=== PATIENT | female | born 1945 | race Caucasian/White ===

== ENCOUNTER 2019-05-03 09:33 | Inpatient (IN) ==
[2019-04-28 12:41] LABS: Basophils # (Auto) 0 K/mcL (0.0-0.3); Basophils % (Auto) 0.8 % (0.0-2.0); Eosinophils # (Auto) 0.1 K/mcL (0.0-0.7); Eosinophils % (Auto) 2.5 % (0.0-7.0); Granulocytes % (Auto) 61.4 % (38.0-78.0); Hematocrit 31.8 % (36.0-48.0); Hemoglobin 10.2 g/dL (12.0-15.0); Lymphocytes # (Auto) 1.6 K/mcL (1.5-4.8); Lymphocytes % (Auto) 27.2 % (15.5-49.0); Mean Cell Volume 86.1 fL (80.0-100.0); Mean Corpuscular HGB Conc 32.1 g/dL (31.0-36.0); Mean Platelet Volume 11.7 fL (7.4-10.4); Monocytes # (Auto) 0.5 K/mcL (0.1-0.9); Monocytes % (Auto) 8.1 % (1.0-12.0); Platelet Count 228 K/mcL (140-440); Red Cell Distribution Width 17.3 % (11.5-14.5); WBC 5.8 K/mcL (4.5-11.0)
[2019-04-28 12:47] LABS: Blood Urea Nitrogen 18 mg/dl (8-23); Calcium 9.1 mg/dl (8.6-10.4); Carbon Dioxide 27 mmol/L (22-30); Chloride 101 mmol/L (96-108); Glomerular Filtration Rate 91; Glucose 94 mg/dL (70-105); Sodium 139 mmol/L (133-145)
[2019-04-28 13:45] LABS: Appearance,Urine CLEAR; Bacteria,Urine 0 /hpf (0); Bilirubin,Urine NEG (NEG); Color,Urine YELLOW; Culture Indicated,Urine NO; Glucose,Urine (UA) NEGATIVE (NEG); Ketones,Urine NEG (NEG); Leukocyte Esterase,Urine 75 /uL (NEG); Mucus,Urine MOD /hpf (0); Nitrate,Urine NEG (NEG); Protein,Urine NEG (NEG); Specific Gravity,Urine 1.013 (1.000-1.035); Urine Blood NEG mg/dL (<0.03); Urine RBC 1 /hpf (0-1); Urine Squamous Epithelial Cell 3 /hpf (0-4); Urine WBC 3 /hpf (0-4); Urobilinogen,Urine NEG (NEG)
[~2019-05-03 09:33] MED LIST: 0.9 % SODIUM CHLORIDE 9 ML, KETOROLAC 30 MG, ROPIVACAINE HCL/PF 49.5 ML, EPINEPHrine 0.... IJ SCH; ACETAMINOPHEN 500 MG TABLET PO SCH; CELECOXIB 200 MG CAPSULE PO SCH; IPRATROPIUM/ALBUTEROL 3 ML AMPUL.NEB NEB PRN; PREGABALIN 75 MG CAPSULE PO SCH; SCOPOLAMINE 1 PATCH PATCH TOPICAL PRN; oxyCODONE 10 MG TAB.ER.12H PO SCH
[2019-05-03] MEDS ORDERED: ceFAZolin 2 GM in DEXTROSE 5% IN WATER 50 ML IV SCH (11:00)
[2019-05-03] MEDS ORDERED: 0.9 % SODIUM CHLORIDE 250 ML IV SCH (11:30)
[2019-05-03] MEDS ORDERED: PROPOFOL 200 MG/20 ML VIAL IV ONE (12:15)
[2019-05-03] MEDS ORDERED: KETAMINE 100 MG/ML ML IV ONE (12:15)
[2019-05-03] MEDS ORDERED: ROPIVACAINE HCL/PF 30 ML VIAL IJ ONE (12:15)
[2019-05-03] MEDS ORDERED: PHENYLEPHRINE 10 MG/ML VIAL IV ONE (12:15)
[2019-05-03] MEDS ORDERED: MIDAZOLAM 2 MG/2 ML VIAL IV ONE (12:15)
[2019-05-03] MEDS ORDERED: GLYCOPYRROLATE 0.2 MG/ML VIAL IV ONE (12:15)
[2019-05-03] MEDS ORDERED: TRANEXAMIC ACID 1,000 MG/10 ML VIAL IV ONE (12:15)
[2019-05-03] MEDS ORDERED: ONDANSETRON 4 MG/2 ML VIAL IV ONE (12:15)
[2019-05-03] MEDS ORDERED: LIDOCAINE HCL/PF 100 MG/5 ML SYRINGE IV ONE (12:15)
[2019-05-03] MEDS ORDERED: GENTAMICIN SULFATE 800 MG/20 ML VIAL IR ONE (12:31)
[2019-05-03] MEDS ORDERED: METHOCARBAMOL 1,000 MG/10 ML VIAL IV PRN (13:30)
[2019-05-03] MEDS ORDERED: LACTATED RINGERS 1,000 ML IV SCH (13:30)
[2019-05-03] MEDS ORDERED: MEPERIDINE 25 MG/ML SYRINGE IV PRN (13:30)
[2019-05-03] MEDS ORDERED: IPRATROPIUM/ALBUTEROL 3 ML AMPUL.NEB NEB PRN (13:30)
[2019-05-03] MEDS ORDERED: ONDANSETRON 4 MG/2 ML VIAL IV PRN (13:30)
[2019-05-03] MEDS ORDERED: BISACODYL 10 MG SUPP.RECT PR PRN (13:41)
[2019-05-03] MEDS ORDERED: FLEETS ADULT ENEMA PR PRN (13:41)
[2019-05-03] MEDS ORDERED: TRANEXAMIC ACID 1,000 MG/10 ML VIAL IV SCH (13:41)
[2019-05-03] MEDS ORDERED: POLYETHYLENE GLYCOL 3350 17 GM PACKET PO PRN (13:41)
[2019-05-03] MEDS ORDERED: MAGNESIUM HYDROXIDE 30 ML ORAL.SUSP PO PRN (13:41)
[2019-05-03] MEDS ORDERED: ACETAMINOPHEN 325 MG TABLET PO PRN (13:41)
[2019-05-03] MEDS ORDERED: HYDROmorphone 2 MG/ML VIAL IV PRN (13:41)
--- NOTE | 2019-05-03 13:41 | Brief Operative Note ---
Date of procedure: 05/03/19 Pre-op diagnosis: Right knee djd traumatic with plate and screws Post-op diagnosis: same Procedure: Right knee hardware removal and tka Grafts/Implants: Yes Anesthesia: KATHYA Surgeon: Sunil Kay [employer] Dealer: Tapan Turner Estimated blood loss (cc): 50 Tourniquet Time (Minutes): 55 Specimens Removed/Pathology: none sent Condition: stable Disposition: PACU
[2019-05-03] MEDS: fentaNYL 100 MCG/2 ML VIAL IV PRN ×3 (14:19→14:39)
--- NOTE | 2019-05-03 14:27 | XRay Report ---
CLINICAL INFORMATION: Right total knee arthroplasty TECHNIQUE: AP and crosstable lateral right knee COMPARISON: None. FINDINGS: There is a fixation plate on the proximal right tibia. Patient has undergone right total knee arthroplasty. Femoral and tibial component are in anatomic positions. There is postsurgical soft tissue and intra-articular gas. IMPRESSION: 1. Status post right total knee arthroplasty 2. Fixation plate of the proximal right tibia. No acute fracture Interpreted and Authenticated by: Aristides Cao 05/03/19
[2019-05-03] MEDS: 0.45 % SODIUM CHLORIDE 1,000 ML IV SCH (15:13)
[2019-05-03] MEDS: 0.9 % SODIUM CHLORIDE 10 ML SYRINGE IV SCH ×2 (15:30→20:49)
[2019-05-03] MEDS: KETOROLAC 15 MG/ML VIAL IV SCH (17:52)
[2019-05-03] MEDS: HYDROcodone/APAP 10/325MG TABLET PO PRN (18:51)
[2019-05-03] MEDS: ATORVASTATIN 20 MG TABLET PO SCH (20:21)
[2019-05-03] MEDS: DOCUSATE SODIUM 100 MG CAPSULE PO SCH (20:21)
[2019-05-03] MEDS: SENNOSIDES 1 TABLET PO SCH (20:21)
[2019-05-03] MEDS: ASPIRIN 325 MG ENTERIC COATED TABLET PO SCH (20:21)
[2019-05-03] MEDS: PROPRANOLOL 10 MG TABLET PO SCH (20:22)
[2019-05-03] MEDS: ceFAZolin 1 GM VIAL IV SCH (20:22)
[2019-05-03] MEDS: BECLOMETHASONE DIPROPIONATE 40MCG INHALER INH SCH (20:49)
[2019-05-03] MEDS: PRIMIDONE 50 MG TABLET PO SCH (20:55)
[2019-05-03] MEDS ORDERED: TEMAZEPAM 15 MG CAPSULE PO PRN (21:00)
[2019-05-04] MEDS: KETOROLAC 15 MG/ML VIAL IV SCH ×5 (00:36→23:06)
[2019-05-04] MEDS: HYDROcodone/APAP 10/325MG TABLET PO PRN ×5 (00:36→20:31)
[2019-05-04] MEDS: 0.45 % SODIUM CHLORIDE 1,000 ML IV SCH ×7 (02:09→19:03)
[2019-05-04] MEDS: ceFAZolin 1 GM VIAL IV SCH (04:42)
[2019-05-04] MEDS: 0.9 % SODIUM CHLORIDE 10 ML SYRINGE IV SCH ×3 (04:42→20:16)
[2019-05-04] MEDS ORDERED: diphenhydrAMINE 25 MG CAPSULE PO ONE ×2 (07:23→10:06)
--- NOTE | 2019-05-04 07:27 | Operative Note ---
DATE OF OPERATION: 05/03/2019 PREOPERATIVE DIAGNOSIS: Right knee degenerative arthritis with hardware from a prior fracture. POSTOPERATIVE DIAGNOSIS: Right knee degenerative arthritis with hardware from a prior fracture. PROCEDURE: Right knee hardware removal and right total knee arthroplasty using ODC components. Four screws were removed from proximal plate. SURGEON: Sunil Kay MD ADMINISTRATIVE UNDERWRITER: Tapan Turner PA-C. The PA's assistance was required for the safe and efficient completion of the entire case. This provider's expertise and technical skill were required throughout the case. The PA assisted with preoperative coordination, intraoperative retraction, wound closure, dressing and splint application, as well as postoperative documentation and care coordination. ANESTHESIA: General anesthesia. COMPLICATIONS: None. TOTAL TOURNIQUET TIME: 50 minutes. ESTIMATED BLOOD LOSS: About 50 mL DESCRIPTION OF PROCEDURE: The patient was brought to the operating room and put to sleep with general LMA anesthesia. Once asleep, the patient had the right leg sterilely prepped and draped in the usual sterile fashion. The leg had slight varus malalignment with a flexion contracture. At this point, we then placed an intramedullary guide into the femur, made our distal femoral cut and our chamfer cuts. The tibia was then prepared by removing 4 proximal screws from the lateral plateau fracture plate that had been placed years ago. These were removed through the midline incision that had been created. We then used an intramedullary guide lana and this was used to align the cut to neutral slope. Once done, we then placed a size 5 tibial baseplate and a size 5 femur. This fit very nicely. We trialled sizes 9, 10 and 11 polys. This gave full extension, brought the knee back to neutral. At this point, we cemented in place the femur and the tibia with appropriate thickness poly with a post because of the deformity of the knee. The post poly was used for predictable alignment and range of motion. The patella was resurfaced with a 29 mm patellar button until total thickness of 20 mm. We irrigated thoroughly and closed the capsule with #1 Stratafix x2 sutures. We closed the skin with Stratafix and juanis. The patient tolerated this well without complication. Tourniquet deflated at approximately 50 minutes. RBH:dk Job ID: [id number] Doc ID: [id number] Sunil Kay MD
[2019-05-04] MEDS: ASPIRIN 325 MG ENTERIC COATED TABLET PO SCH ×2 (07:30→20:14)
[2019-05-04] MEDS: LEVOTHYROXINE 100 MCG TABLET PO SCH (07:30)
[2019-05-04] MEDS: PRIMIDONE 50 MG TABLET PO SCH ×2 (07:31→20:14)
[2019-05-04] MEDS: MAGNESIUM OXIDE 400 MG TABLET PO SCH (07:32)
[2019-05-04] MEDS: DOCUSATE SODIUM 100 MG CAPSULE PO SCH ×2 (07:33→20:14)
[2019-05-04] MEDS: LEVOTHYROXINE 75 MCG TABLET PO SCH (07:33)
[2019-05-04] MEDS: CITALOPRAM 20 MG TABLET PO SCH (07:33)
[2019-05-04] MEDS: BECLOMETHASONE DIPROPIONATE 40MCG INHALER INH SCH ×2 (07:34→20:16)
--- NOTE | 2019-05-04 07:43 | Orthopedic Progress Note ---
Subjective Patient information: Note initiated : 05/04/19 at 7:42 am Service Date, if different from initiated Date: [] Patient: Laure Aguirre 73 y/o F admitted on 05/03/19 for Right Total Knee Arthroplasty and Hardware Removal. Chief Complaint: [Pt is stable this morning on post operative day 1 without any significant concerns or complaints. Patients vital signs have remained stable. Patients dressing is dry and is grossly intact from a neurovascular and motor standpoint. Patients 10 point ROS is otherwise negative. ] Objective Vital signs: Vital Signs Temp Pulse Resp BP Pulse Ox 05/04/19 07:22 98.0 F 71 12 101/48 93 05/04/19 04:08 98.4 F 71 12 113/56 98 05/03/19 22:49 97.4 F 60 12 106/51 98 05/03/19 19:15 97.7 F 65 12 112/51 97 05/03/19 16:54 64 101/54 96 05/03/19 16:23 65 111/55 95 05/03/19 15:53 65 112/56 91 05/03/19 15:23 69 16 115/58 97 05/03/19 14:53 97.6 F 69 133/67 92 05/03/19 14:42 97.7 F 70 14 144/62 98 05/03/19 14:27 97.5 F 71 14 146/57 97 05/03/19 14:12 97.7 F 73 18 155/73 100 05/03/19 14:07 77 17 150/71 100 05/03/19 14:02 73 15 151/75 98 05/03/19 13:57 97.2 F 75 16 136/85 98 05/03/19 09:33 98.2 F 68 18 124/64 96 Intake and Output 05/03/19 05/04/19 05/04/19 21:59 05:59 13:59 Intake Total 3100 1250 Output Total 1 350 Balance 3099 900 Intake: IV 1000 Sodium Chloride 0.45% 1,000 ml 1000 @ 100 mls/hr IV .Q10H [facility] Rx#: [id number] Oral 1200 250 IV - Manual Only 1900 Output: Void Amount 350 # of times incontinent of urine 1 Other: Urine Color Dark Yellow Weight 249 lb Intake & Output: Intake & Output 05/03/19 05/04/1905/04/19 21:59 05:59 13:59 Intake Total 3100 1250 Output Total 1 350 Balance 3099 900 Weight 249 lb Intake: IV 1000 Sodium Chloride 0.45% 1,000 ml 1000 @ 100 mls/hr IV .Q10H [facility] Rx#: [id number] Oral 1200 250 IV - Manual Only 1900 Output: Void Amount 350 # of times incontinent of urine 1 Other: Urine Color Dark Yellow Incision: Yes healing Incision clean and dry: Yes Dressing: Yes clean Weight bearing status: full Neurological exam IM: Yes motor sensory intact, Yes neurovascular intact Extremities exam IM: Yes Foot pink and warm, Yes neurovascular intact - Labs CBC & BMP: 05/04/19 04:35 04/28/19 10:36 Labs: Orthopedic Labs 04/28/19 10:37 APTT 39 H 05/04/19 04/28/19 04:35 10:37 Hgb 10.2 L Hct 29.7 L 31.8 L Assessment and Plan (1) Hx of total knee arthroplasty The patient has been educated regarding dressing care, Physical Therapy recommendations, home exercises, restrictions, and follow up appointments. The patient has had all necessary DME prescribed. The patient has remained relatively stable during their hospital course. Status: Acute
--- NOTE | 2019-05-04 07:44 | Discharge Summary ---
Ortho Discharge - TKA - Patient Instructions Diet: Regular Diet Activity: activity as tolerated, weight bearing as tolerated Total Knee Protocol: For Total Knee: Start ROM TRINI with stationary bike or rocking chair. Work on gaining full extension of knee. Posterior dislocation precautions provided. Hip abductor strengthening and gait training instructions provided. Apply Cryocuff as instructed. Dressing Care: May shower in 2 days, Aquacel Ag - leave on for 5 days - Problem Maintenance (1) Hx of total knee arthroplasty Status: Acute - Follow Up Plan Follow Up Appointments: Tapan Turner PA-C [Physician Pipelayer] - 05/18/19 8:40 am Disposition: Home, Self-Care Prognosis: Good Rehab Potential: Good I certify that the patient requires SNF services: No Overall status at discharge: patient is progressing back to baseline - Orders For Discharge Prescriptions: Aspirin [Ecotrin] 325 mg PO BID #60 tab.ec Docusate Sodium [Colace] 100 mg PO BID #60 cap HYDROcodone/APAP 10/325MG [[place] 10-325Mg] 1 - 2 tab PO Q4HP PRN #75 tab PRN Reason: Pain Level 3-6
[2019-05-04] MEDS: HYDROCHLOROTHIAZIDE 25 MG TABLET PO SCH ×2 (10:25→12:24)
[2019-05-04] MEDS: PROPRANOLOL 10 MG TABLET PO SCH ×2 (12:24→20:14)
[2019-05-04] MEDS: ONDANSETRON 4 MG/2 ML VIAL IV PRN ×2 (12:24→17:53)
[2019-05-04] MEDS: BENZOCAINE/MENTHOL 1 LOZENGE PO PRN ×2 (13:54→16:28)
[2019-05-04] MEDS ORDERED: LORazepam 0.5 MG TABLET PO PRN (14:33)
[2019-05-04] MEDS: diphenhydrAMINE 25 MG CAPSULE PO PRN ×2 (16:24→23:06)
[2019-05-04] MEDS: ATORVASTATIN 20 MG TABLET PO SCH (20:14)
[2019-05-04] MEDS: SENNOSIDES 1 TABLET PO SCH (20:14)
[2019-05-05] MEDS: diphenhydrAMINE 25 MG CAPSULE PO PRN ×2 (02:00→09:30)
[2019-05-05] MEDS: BENZOCAINE/MENTHOL 1 LOZENGE PO PRN (04:25)
[2019-05-05] MEDS: HYDROcodone/APAP 10/325MG TABLET PO PRN (04:25)
[2019-05-05] MEDS: KETOROLAC 15 MG/ML VIAL IV SCH ×2 (05:17→14:34)
[2019-05-05] MEDS: 0.9 % SODIUM CHLORIDE 10 ML SYRINGE IV SCH ×2 (05:17→14:34)
[2019-05-05] MEDS: LEVOTHYROXINE 100 MCG TABLET PO SCH (07:54)
[2019-05-05] MEDS: LEVOTHYROXINE 75 MCG TABLET PO SCH (07:54)
[2019-05-05] MEDS: PRIMIDONE 50 MG TABLET PO SCH (09:22)
[2019-05-05] MEDS: CITALOPRAM 20 MG TABLET PO SCH (09:22)
[2019-05-05] MEDS: ASPIRIN 325 MG ENTERIC COATED TABLET PO SCH (09:22)
[2019-05-05] MEDS: DOCUSATE SODIUM 100 MG CAPSULE PO SCH (09:22)
[2019-05-05] MEDS: PROPRANOLOL 10 MG TABLET PO SCH (09:23)
[2019-05-05] MEDS: HYDROCHLOROTHIAZIDE 25 MG TABLET PO SCH (09:23)
[2019-05-05] MEDS: MAGNESIUM OXIDE 400 MG TABLET PO SCH (09:23)
[2019-05-05] MEDS: BECLOMETHASONE DIPROPIONATE 40MCG INHALER INH SCH (09:25)
== END 2019-05-05 13:36 | disposition home or self-care (01) | DRG 470 ==
LOC: MEDSUR 09:33
PROVIDERS: ADMIT Orthopaedic Surgery; ATTEND Orthopaedic Surgery